=== PATIENT | male | born 1965 | race Caucasian/White ===

== ENCOUNTER 2021-05-02 02:36 | Inpatient (IN) | payer MEDICARE, MEDICAID ==
[~2021-05-02] VITALS: Ht 190.5 cm; Wt 100.0 kg
[2021-05-02 03:03] LABS: BASOPHILS # (AUTO) 0.1 X10'3 (0-0.2); BASOPHILS % (AUTO) 0.5 % (0-1); EOSINOPHILS % (AUTO) 0.5 % (0-6); HEMATOCRIT 44.9 % (42.0-52.0); HEMOGLOBIN 14.9 g/dl (14.0-17.9); LYMPHOCYTES # (AUTO) 1.5 X10'3 (1.1-4.8); LYMPHOCYTES % (AUTO) 15.4 % (21-51); MEAN CORPUSCULAR HEMOGLOBIN 31.3 PG (27.0-31.0); MEAN CORPUSCULAR HGB CONC 33.1 g/dL (33.0-36.5); MEAN CORPUSCULAR VOLUME 94.5 FL (78-98); MEAN PLATELET VOLUME 7.6 FL (7.4-10.4); MONOCYTES % (AUTO) 10.2 % (2-12); NEUTROPHILS # (AUTO) 7.2 X10'3 (1.8-7.7); NEUTROPHILS % (AUTO) 73.4 % (42-75); PLATELET COUNT 169 X10'3 (140-440); RED BLOOD COUNT 4.75 X10'6 (4.70-6.10); RED CELL DISTRIBUTION WIDTH 14.4 % (11.5-14.5); WHITE BLOOD COUNT 9.8 X10'3 (4.5-11.0)
[2021-05-02 03:19] LABS: ALBUMIN 3.1 G/DL (3.4-5.0); ALBUMIN/GLOBULIN RATIO 0.9 (1.1-1.5); ALKALINE PHOSPHATASE 154 IU/L (46-116); ANION GAP 11 (8-16); ASPARTATE AMINO TRANSFERASE 899 U/L (10-37); BILIRUBIN,TOTAL 0.9 MG/DL (0.1-1.0); BLOOD UREA NITROGEN 42 MG/DL (7-18); BUN/CREATININE RATIO 28.6 (5.4-32.0); CALCIUM 8.5 MG/DL (8.5-10.1); CHLORIDE 99 MMOL/L (99-107); CREATININE 1.47 MG/DL (0.60-1.10); GLUCOSE 175 MG/DL (70-104); POTASSIUM 3.8 MMOL/L (3.5-5.1); SODIUM 137 MMOL/L (135-145); TOTAL CARBON DIOXIDE 26.6 MMOL/L (24-32); TOTAL PROTEIN 6.6 G/DL (6.4-8.2); eGFR 50 ML/MIN
[2021-05-02 03:24] LABS: ALANINE AMINOTRANSFERASE 1643 U/L (12-78)
[2021-05-02] MEDS ORDERED: furosemide 10 MG/1 ML 10ml inj IV ONE ×2 (03:35→03:55)
[2021-05-02] MEDS ORDERED: iohexol 350MG/ML 100ml bottle IV ONE (03:46)
[2021-05-02] MEDS ORDERED: magnesium 4gm in 100ml NS 100 ML IV PRN (04:55)
[2021-05-02] MEDS ORDERED: potassium CL 10mEq/100ml bag 100 ML IV PRN (04:55)
[2021-05-02] MEDS ORDERED: PERFLUTREN PROTEIN-A MICROSPHR (Optison) 0.22 MG/ML 3ML VIAL IV PRN (04:55)
[2021-05-02] MEDS ORDERED: potassium Cl 20 mEq SR tablet PO PRN ×2 (04:55)
[2021-05-02] MEDS ORDERED: ondansetron/PF 4mg/2ml inj IV PRN (04:55)
[2021-05-02] MEDS ORDERED: magnesium Cl slow-release 64mg tablet PO PRN (04:55)
[2021-05-02] MEDS ORDERED: acetaminophen 325mg tablet PO PRN (04:55)
[2021-05-02] MEDS ORDERED: magnesium hydroxide 30ml (MOM) UD suspension PO PRN (04:55)
[2021-05-02] MEDS ORDERED: mag hydrox/Alum hydrox/simeth 30ml oral suspension PO PRN (04:55)
[2021-05-02] MEDS ORDERED: magnesium 2GM in 50ml NS 50 ML IV PRN (04:55)
[2021-05-02 05:09] LABS: URINE AMPHETAMINE SCREEN POSITIVE (Neg); URINE BARBITUATE SCREEN NEGATIVE (Neg); URINE BENZODIAZEPINES SCREEN NEGATIVE (Neg); URINE CANNABINOID SCREEN NEGATIVE (Neg); URINE COCAINE SCREEN NEGATIVE (Neg); URINE METHADONE SCREEN NEGATIVE (Neg); URINE OPIATE SCREEN NEGATIVE (Neg); URINE PHENCYCLIDINE SCREEN NEGATIVE (Neg)
[2021-05-02 05:28] VITALS: BP 127/90
[2021-05-02] MEDS ORDERED: docusate sod 100mg capsule PO SCH (08:00)
[2021-05-02] MEDS ORDERED: heparin, porcine 5000 units/ml vial SQ SCH (08:00)
[2021-05-02] MEDS ORDERED: furosemide 20 MG/2 ML vial IV SCH (08:00)
[2021-05-02] MEDS ORDERED: K and/or MAG REPLACEMENT MC SCH (08:00)
[2021-05-02] MEDS ORDERED: carvedilol 6.25mg tablet PO SCH (08:00)
[2021-05-02 08:28] LABS: MAGNESIUM 2.1 MG/DL (1.5-2.4); POTASSIUM 3.6 MMOL/L (3.5-5.1)
--- NOTE | 2021-05-02 09:25 | NUR ---
PT TO CT
[2021-05-02] MEDS ORDERED: LISI5TAB22 PO (10:51)
[2021-05-02] MEDS ORDERED: CARV3.12 PO (10:51)
[2021-05-02] MEDS ORDERED: SPIR25TA5 PO (10:51)
[2021-05-02] MEDS ORDERED: FURO40TA4 PO (10:51)
== END 2021-05-02 18:00 | disposition home or self-care (01) | DRG 292 ==
LOC: ER 02:37 → ED HOLD 04:54
PROVIDERS: ADMIT Internal Medicine; ATTEND Internal Medicine
PROC: B32T1ZZ Computerized Tomography (CT Scan) of Left Pulmonary Artery using Low Osmolar Contrast (ICD-10-PCS; principal; 2021-05-02)
PROC: B3201ZZ Computerized Tomography (CT Scan) of Thoracic Aorta using Low Osmolar Contrast (ICD-10-PCS; 2021-05-02)
PROC: B32S1ZZ Computerized Tomography (CT Scan) of Right Pulmonary Artery using Low Osmolar Contrast (ICD-10-PCS; 2021-05-02)
DX: I50.23 Acute on chronic systolic (congestive) heart failure (principal); N17.9 Acute kidney failure, unspecified; Z20.822 Contact with and (suspected) exposure to COVID-19; F17.200 Nicotine dependence, unspecified, uncomplicated; F15.90 Other stimulant use, unspecified, uncomplicated; I44.4 Left anterior fascicular block; R00.0 Tachycardia, unspecified; K76.1 Chronic passive congestion of liver; N18.9 Chronic kidney disease, unspecified; Z59.00 Homelessness unspecified; Z79.899 Other long term (current) drug therapy
CPT/HCPCS: 36415; 71045; 71275; 80053; 80305; 83735; 83880; 84132; 84484; 85025; 85610; 87635; 93005; 93306; 99285; C9803; G0378; J1644; J1940; Q9967